=== PATIENT | female | born 1990 | race Caucasian/White ===

== ENCOUNTER 2021-02-22 07:59 | Outpatient (CLI) | payer BC ==
[2021-02-22 16:44] LABS: SARS-CoV-2 PCR by NAA Not Detected (NotDetected)
== END 2021-02-22 08:00 | disposition home or self-care (01) ==
LOC: CSHLAB 07:59
PROVIDERS: ATTEND Student in an Organized Health Care Education/Training Program
DX: Z20.822 Contact with and (suspected) exposure to COVID-19 (principal)
CPT/HCPCS: 87635; U0003; U0005

== ENCOUNTER 2021-02-25 16:44 | Inpatient (IN) | payer BC ==
[2021-02-25 19:05] VITALS: BMI 33.5
[2021-02-25] MEDS ORDERED: Acetaminophen 500 MG TAB PO PRN (19:08)
[2021-02-25] MEDS ORDERED: Methylergonovine 0.2 MG/ML VIAL IM PRN (19:08)
[2021-02-25] MEDS ORDERED: Misoprostol 200 MCG TAB PR PRN (19:08)
[2021-02-25] MEDS ORDERED: Lidocaine 1% (PF) 30 ML VIAL SC PRN (19:08)
[2021-02-25] MEDS ORDERED: Zolpidem Tartrate 5 MG TAB PO PRN (19:08)
[2021-02-25] MEDS ORDERED: Promethazine HCl 25 MG/ML VIAL IM PRN (19:08)
[2021-02-25] MEDS ORDERED: Carboprost 250 MCG/ML AMP IM PRN (19:08)
[2021-02-25] MEDS ORDERED: Ondansetron PF 4 MG/2 ML Vial IVP PRN (19:08)
[2021-02-25] MEDS ORDERED: Ibuprofen 800 MG TAB PO PRN (19:08)
[2021-02-25] MEDS ORDERED: HYDROcodone/Acetaminophen 5/325 mg Tablet PO PRN (19:08)
[2021-02-25] MEDS ORDERED: Diphenoxylate HCl/Atropine Tablet PO PRN (19:08)
[2021-02-25] MEDS ORDERED: hydrALAZINE 20 MG/ML VIAL SLOW IVP PRN (19:08)
[2021-02-25] MEDS ORDERED: Penicillin G Potassium 5 MILL.UNITS in Sodium Chloride 0.9% 100 ML IVPB SCH (19:15)
[2021-02-25] MEDS ORDERED: NS w/ Oxytocin 30 units 500 ML IV PRN (19:16)
[2021-02-25] MEDS: Misoprostol 100 MCG TAB VAG SCH ×2 (20:04→23:51)
[2021-02-25 20:17] LABS: Hemoglobin 11.7 g/dL (12.0-15.5); Mean Corpuscular HGB CONC 34.4 g/dL (32.0-36.0); Mean Corpuscular Hemoglobin 29.7 pg (27.0-33.0); Mean Corpuscular Volume 86.3 fl (81.6-98.3); Mean Platelet Volume 11.4 fl (7.4-10.4); Platelet Count 191 10x3/uL (150-450); RBC Distribution Width 13.5 % (11.5-14.5); Red Blood Cell (RBC) Count 3.94 10x6/uL (3.90-5.03); White Blood Cell (WBC) Count 11.5 10x3/uL (3.5-10.5)
[2021-02-25 20:56] LABS: Hep B Surf Ag Non-Reactive S/CO (NonReactive); Syphilis Antibody Nonreactive (Nonreactive); Syphilis Antibody Index 0.02 S/CO (<1.00 Non-Reactive)
[2021-02-25 22:31] LABS: HBSAg Index 0.17 S/CO (0-0.99)
[2021-02-26] MEDS: Penicillin G 2.5 MILL.units 2.5 MILL.UNITS in Premix Bag 1 BAG IVPB SCH ×6 (00:56→21:00)
[2021-02-26] MEDS: Butorphanol Tartrate 1 MG/ML VIAL SLOW IVP PRN ×2 (03:22→05:06)
[2021-02-26] MEDS: Misoprostol 100 MCG TAB VAG SCH ×4 (05:26→21:01)
[2021-02-26] MEDS: Lactated Ringer's 1,000 ML IV SCH ×3 (09:39→21:04)
[2021-02-26] MEDS ORDERED: Fentanyl 4 mcg/Bup 0.1% Cadd 100 ML ONE (09:48)
[2021-02-26] MEDS: Fentanyl 4 mcg/Bupivacaine 0.1% Cassette 100 ML EPIDURAL SCH ×3 (10:22→22:54)
[2021-02-26] MEDS ORDERED: Ondansetron PF 4 MG/2 ML Vial IVP PRN (10:24)
[2021-02-26] MEDS ORDERED: Promethazine HCl 25 MG/ML VIAL IM PRN (10:24)
[2021-02-26] MEDS ORDERED: Naloxone HCl 0.4 mg/ml Vial IVP PRN ×2 (10:24)
[2021-02-26] MEDS ORDERED: Acetaminophen 325 MG TAB PO PRN (10:24)
[2021-02-26] MEDS ORDERED: Lactated Ringer's 500 ML IV PRN (10:24)
[2021-02-26] MEDS ORDERED: diphenhydrAMINE 50 MG/ML VIAL IVP PRN (10:24)
[2021-02-26] MEDS ORDERED: Communication Order-Pharmacy FS SCH (10:30)
[2021-02-26] MEDS ORDERED: ePHEDrine Sulfate 50 MG/10 ML VIAL SLOW IVP PRN (10:36)
[2021-02-26] MEDS ORDERED: Hydrocerin (Eucerin) Cream 120 gm Jar TOP PRN (10:36)
[2021-02-26] MEDS ORDERED: Fentanyl 100 MCG/2 ML VIAL ONE (17:32)
[2021-02-27] MEDS ORDERED: NS w/ Oxytocin 30 units 500 ML ONE (01:08)
[2021-02-27] MEDS ORDERED: Methylergonovine 0.2 MG/ML VIAL ONE (01:08)
[2021-02-27] MEDS ORDERED: Misoprostol 200 MCG TAB ONE (01:08)
[2021-02-27] MEDS: Penicillin G 2.5 MILL.units 2.5 MILL.UNITS in Premix Bag 1 BAG IVPB SCH ×2 (03:18→07:57)
[2021-02-27] MEDS: Lactated Ringer's 1,000 ML IV SCH ×2 (03:18→07:57)
[2021-02-27] MEDS: Misoprostol 100 MCG TAB VAG SCH ×2 (03:18→07:58)
[2021-02-27] MEDS ORDERED: Benzocaine-Menthol 82.5 ML CAN TOP PRN (06:52)
[2021-02-27] MEDS ORDERED: Ondansetron PF 4 MG/2 ML Vial IVP PRN (06:52)
[2021-02-27] MEDS ORDERED: Lanolin Ointment 7 GM TUBE TOP PRN (06:52)
[2021-02-27] MEDS ORDERED: diphenhydrAMINE 25 MG CAP PO PRN (06:52)
[2021-02-27] MEDS ORDERED: Milk Of Magnesia 30 ML UDCUP PO PRN (06:52)
[2021-02-27] MEDS ORDERED: Adacel (T-DAP) 0.5 ML SYRINGE IM ONE (06:52)
[2021-02-27] MEDS ORDERED: Bisacodyl 10 MG SUPP PR PRN (06:52)
[2021-02-27] MEDS ORDERED: hydrALAZINE 20 MG/ML VIAL SLOW IVP PRN (06:52)
[2021-02-27] MEDS ORDERED: Preparation H Ointment 28 GM TUBE PR PRN (06:52)
[2021-02-27] MEDS ORDERED: Zolpidem Tartrate 5 MG TAB PO PRN (06:52)
[2021-02-27] MEDS ORDERED: HYDROcodone/Acetaminophen 5/325 mg Tablet PO PRN (06:52)
[2021-02-27] MEDS ORDERED: Promethazine HCl 25 MG/ML VIAL IM PRN (06:52)
[2021-02-27] MEDS ORDERED: Boostrix 0.5 ML (Tdap) VIAL IM ONE (07:15)
[2021-02-27] MEDS ORDERED: NS w/ Oxytocin 30 units 500 ML IVPB SCH (07:15)
[2021-02-27] MEDS: Ferrous Sulfate 325 MG TAB PO SCH ×2 (07:59→16:55)
[2021-02-27] MEDS: Docusate Calcium (SURFAK) 240 MG CAP PO SCH ×2 (09:24→21:39)
[2021-02-27] MEDS: Prenatal Vitamin 1 TAB PO SCH (09:24)
[2021-02-27] MEDS: HYDROcodone/Acetaminophen 5/325 mg Tablet PO PRN ×4 (09:26→23:45)
[2021-02-27] MEDS: Enoxaparin Sodium 40 MG/0.4 ML SYRINGE SC SCH (09:27)
[2021-02-27] MEDS: Ibuprofen 800 MG TAB PO SCH ×2 (16:55→23:49)
[2021-02-27] MEDS ORDERED: Witch Hazel-Glycerin 1 EACH JAR TOP PRN (18:12)
[2021-02-28] MEDS: HYDROcodone/Acetaminophen 5/325 mg Tablet PO PRN ×4 (05:31→21:49)
[2021-02-28] MEDS: Ibuprofen 800 MG TAB PO SCH ×3 (07:30→23:07)
[2021-02-28] MEDS: Ferrous Sulfate 325 MG TAB PO SCH ×2 (07:53→16:16)
[2021-02-28] MEDS: Prenatal Vitamin 1 TAB PO SCH (09:52)
[2021-02-28] MEDS: Enoxaparin Sodium 40 MG/0.4 ML SYRINGE SC SCH (09:52)
[2021-02-28] MEDS: Docusate Calcium (SURFAK) 240 MG CAP PO SCH ×2 (09:52→21:48)
[2021-02-28] MEDS ORDERED: Lidocaine 1% w/Epinephrine 1:100K 20 ML VIAL IJ SCH (13:00)
[2021-02-28] MEDS ORDERED: Preparation H Ointment 28 GM TUBE TOP PRN (14:23)
[2021-03-01] MEDS: HYDROcodone/Acetaminophen 5/325 mg Tablet PO PRN ×2 (04:45→08:30)
[2021-03-01 07:58] VITALS: BP 117/65; TEMP 98.4
[2021-03-01] MEDS: Docusate Calcium (SURFAK) 240 MG CAP PO SCH (08:30)
[2021-03-01] MEDS: Prenatal Vitamin 1 TAB PO SCH (08:30)
[2021-03-01] MEDS: Enoxaparin Sodium 40 MG/0.4 ML SYRINGE SC SCH (09:14)
[2021-03-01] MEDS: Ibuprofen 800 MG TAB PO SCH (09:14)
[2021-03-01] MEDS: Ferrous Sulfate 325 MG TAB PO SCH (09:14)
== END 2021-03-01 12:35 | disposition home or self-care (01) | DRG 806 ==
LOC: CSHLD 18:02 → CSHPP 02-27 04:30
PROVIDERS: ADMIT Student in an Organized Health Care Education/Training Program; ATTEND Student in an Organized Health Care Education/Training Program
PROC: 3E0DXGC Introduction of Other Therapeutic Substance into Mouth and Pharynx, External Approach (ICD-10-PCS; 2021-02-25)
PROC: 3E0P7VZ Introduction of Hormone into Female Reproductive, Via Natural or Artificial Opening (ICD-10-PCS; 2021-02-25)
PROC: 10E0XZZ Delivery of Products of Conception, External Approach (ICD-10-PCS; principal; 2021-02-27)
PROC: 0KQM0ZZ Repair Perineum Muscle, Open Approach (ICD-10-PCS; 2021-02-27)
PROC: 069Y3ZZ Drainage of Lower Vein, Percutaneous Approach (ICD-10-PCS; 2021-03-01)
DX: O99.12 Other diseases of the blood and blood-forming organs and certain disorders involving the immune mechanism complicating childbirth (principal); D68.52 Prothrombin gene mutation; Z37.0 Single live birth; Z3A.39 39 weeks gestation of pregnancy; Z20.822 Contact with and (suspected) exposure to COVID-19; O99.824 Streptococcus B carrier state complicating childbirth; O69.81X0 Labor and delivery complicated by cord around neck, without compression, not applicable or unspecified; O87.2 Hemorrhoids in the puerperium; Z86.718 Personal history of other venous thrombosis and embolism; Z88.1 Allergy status to other antibiotic agents; Z88.8 Allergy status to other drugs, medicaments and biological substances; Z79.01 Long term (current) use of anticoagulants
CPT/HCPCS: 36415; 51702; 85027; 86780; 86850; 86900; 86901; 87340; 87635; J0595; J1650; J2540; J2590; J3490; U0003; U0005

== ENCOUNTER 2022-06-11 06:03 | Day surgery (SDC) | payer BC ==
[2022-06-07 14:35] VITALS: BMI 29.2
[2022-06-11] MEDS ORDERED: Bupivacaine 0.25% HCL 30 ML VIAL ONE (07:45)
[2022-06-11] MEDS ORDERED: EPINEPHrine 1 MG/ML AMP ONE (07:47)
[2022-06-11] MEDS ORDERED: Lidocaine 2% MPF 10 ML AMP (For Epidural Use) ONE (07:47)
[2022-06-11] MEDS ORDERED: Lidocaine 2% Jelly 5 ML TUBE ONE ×2 (07:50→07:54)
[2022-06-11] MEDS ORDERED: Fentanyl 250 MCG/5 ML VIAL ONE (07:52)
[2022-06-11] MEDS ORDERED: PHENYLEPHRINE-NS 100 MCG/ML 10 ML SYRINGE ONE (07:52)
[2022-06-11] MEDS ORDERED: PROPOFOL 20 ML ONE (07:52)
[2022-06-11] MEDS ORDERED: Lidocaine 1% PF 5 ML VIAL ONE (07:58)
[2022-06-11] MEDS ORDERED: CEFAZOLIN 2 GM VIAL ONE (08:04)
[2022-06-11] MEDS ORDERED: Midazolam HCl 2 mg/2 ml Vial ONE (08:13)
[2022-06-11] MEDS ORDERED: Ketorolac Tromethamine 30 MG/ML VIAL ONE (08:20)
[2022-06-11] MEDS ORDERED: Ondansetron PF 4 MG/2 ML Vial ONE (08:20)
[2022-06-11] MEDS ORDERED: Dexamethasone 4 mg/ml Vial ONE (08:20)
== END 2022-06-11 10:15 | disposition home or self-care (01) ==
LOC: CSHSDC 06:03
PROVIDERS: ATTEND Surgery
PROC: 06BY0ZC Excision of Hemorrhoidal Plexus, Open Approach (ICD-10-PCS; principal; 2022-06-11)
DX: K64.4 Residual hemorrhoidal skin tags (principal); J45.909 Unspecified asthma, uncomplicated; F41.9 Anxiety disorder, unspecified; Z79.82 Long term (current) use of aspirin; Z79.51 Long term (current) use of inhaled steroids; Z79.899 Other long term (current) drug therapy; Z88.8 Allergy status to other drugs, medicaments and biological substances
CPT/HCPCS: 84702; J0171; J0690; J1100; J1885; J2250; J2405; J2704; J3010; S0020

== ENCOUNTER 2022-11-26 19:31 | Emergency (ER) | payer BC | END 2022-11-26 21:12 | disposition home or self-care (01) | LOC: CSHERS 19:31 | DX: I82.612 Acute embolism and thrombosis of superficial veins of left upper extremity (principal) ==

== ENCOUNTER 2023-08-31 21:53 | Emergency (ER) | payer BC ==
[2023-09-01] MEDS ORDERED: Ibuprofen 200 MG TAB ONE (00:11)
[2023-09-01] MEDS ORDERED: Dexamethasone 10 MG/ML VIAL ONE (00:11)
== END 2023-09-01 00:56 | disposition home or self-care (01) ==
LOC: CSHERS 21:53
DX: J02.9 Acute pharyngitis, unspecified (principal)
CPT/HCPCS: 99283; J1100

== ENCOUNTER 2024-05-08 20:55 | Emergency (ER) | payer BC ==
[2024-05-08] MEDS ORDERED: Ibuprofen 200 MG TAB ONE (22:00)
[2024-05-08 23:52] LABS: Influenza A by NAA Not Detected (NotDetected); Influenza B by NAA Not Detected (NotDetected); SARS-CoV-2 NAA Rapid Test Not Detected (NotDetected)
[2024-05-09] MEDS ORDERED: cefTRIAXone (ROCEPHIN) 1 GM VIAL ONE (00:01)
== END 2024-05-09 00:25 | disposition home or self-care (01) ==
LOC: CSHERS 20:55
DX: J18.9 Pneumonia, unspecified organism (principal)
CPT/HCPCS: 71046; 96374; J0696

== ENCOUNTER 2024-09-10 07:59 | Emergency (ER) | payer BC ==
[2024-09-10] MEDS ORDERED: Acetaminophen 500 MG TAB ONE (08:22)
[2024-09-10 09:11] LABS: #Basophils 0.03 10x3/uL (0.0-0.2); #Eosinophils 0.28 10x3/uL (0.0-0.5); %Basophils 0.3 % (0.0-2.0); %Eosinophils 2.4 % (0.0-6.0); %Monocytes 4.2 % (0.0-10.0); %Neutrophils 76.8 % (40.0-75.0); Hematocrit 36.1 % (34.9-44.5); Hemoglobin 12.3 g/dL (12.0-15.5); Mean Corpuscular HGB CONC 34.1 g/dL (32.0-36.0); Mean Corpuscular Hemoglobin 29.6 pg (27.0-33.0); Mean Platelet Volume 9.7 fL (7.4-10.4); Platelet Count 170 10x3/uL (150-450); RBC Distribution Width 12.3 % (11.5-14.5); Red Blood Cell (RBC) Count 4.15 10x6/uL (3.90-5.03); White Blood Cell (WBC) Count 11.8 10x3/uL (3.5-10.5)
[2024-09-10 09:19] LABS: ALT (SGPT) 21 U/L (8-55); AST (SGOT) 9 U/L (5-34); Albumin 3.3 g/dL (3.5-5.0); Alkaline Phosphatase 74 U/L (40-110); Anion Gap 15 mmol/L (10-20); BUN (Urea Nitrogen) 7 mg/dL (7.0-18.7); Bilirubin, Total 0.3 mg/dL (0.2-1.2); Calc. Creatinine Clearance 0 mL/min (70-130); Calcium 9.4 mg/dL (7.8-10.44); Carbon Dioxide 20 mmol/L (22-29); Chloride 105 mmol/L (98-107); Estimated GFR 117; Globulin 3.1 g/dL (2.4-3.5); Glucose 137 mg/dL (70-105); Potassium 3.5 mmol/L (3.5-5.1); Protein, Total 6.4 g/dL (6.0-8.3); Sodium 136 mmol/L (136-145)
[2024-09-10 09:25] LABS: D-Dimer Test 15.39 mcg/mL (0.19-0.50); Prothrombin Time 11.1 sec (9.5-12.1)
[2024-09-10] MEDS ORDERED: Enoxaparin 100 MG (1 mL) SYRINGE ONE (11:01)
== END 2024-09-10 11:13 | disposition home or self-care (01) ==
LOC: CSHERS 07:59
DX: O22.31 Deep phlebothrombosis in pregnancy, first trimester (principal); I82.402 Acute embolism and thrombosis of unspecified deep veins of left lower extremity; Z3A.11 11 weeks gestation of pregnancy
CPT/HCPCS: 36415; 80053; 85025; 85379; 85610; J1650